=== PATIENT | female | born 1965 | race Caucasian/White ===

== ENCOUNTER → 2018-05-05 13:12 | Outpatient (CLI) | payer OTHER, MEDICAID, SELFPAY | PROVIDERS: Visit Provider Physician Assistant | DX: R68.89 Other general symptoms and signs (principal) | CPT/HCPCS: 87400 ==

== ENCOUNTER → 2018-06-29 10:39 | Outpatient (CLI) | payer OTHER, MEDICAID, SELFPAY ==
--- NOTE | 2018-06-29 | DI.MG.S_ITS ---
BILATERAL DIGITAL SCREENING MAMMOGRAM 3D/2D WITH CAD: 06/29/2018 CLINICAL: Routine screening. Baseline exam. No prior exams were available for comparison. There are scattered fibroglandular elements in both breasts. Current study was also evaluated with a Computer Aided Detection (CAD) system. No significant masses, calcifications, or other findings are seen in either breast. IMPRESSION: NEGATIVE There is no mammographic evidence of malignancy. A 1 year screening mammogram is recommended. This exam was interpreted at Station ID: [id number]. NOTE: For mammograms, a report in lay terms will be sent to the patient. Approximately 15% of breast malignancies will not be visualized mammographically. In the management of a palpable breast mass, a negative mammogram must not discourage biopsy of a clinically suspicious lesion. Electronically Signed By: Norma obregon/moshe:06/29/2018 11:27:28 letter sent: Normal Exam ACR BI-RADS Category 1: Negative [id number]
== END ==
PROVIDERS: Visit Provider Physician Assistant
DX: Z12.31 Encounter for screening mammogram for malignant neoplasm of breast (principal)
CPT/HCPCS: 77063; 77067

== ENCOUNTER → 2018-07-07 10:55 | Outpatient (CLI) | payer OTHER, MEDICAID, SELFPAY ==
[2018-07-07 11:42] LABS: Add Manual Diff / Slide Review NO; Basophils Absolute Auto 0 /uL (0-100); Basophils Percent Auto 1.1 % (0-2); Eosinophils Absolute Auto 100 /uL (0-450); Eosinophils Percent Auto 1.3 % (2-4); Hematocrit 38.7 % (36-46); Lymphocytes Absolute Auto 1300 /uL (1100-4500); Lymphocytes Percent Auto 28.5 % (25-40); Mean Corpuscular HGB Conc 33.6 % (30-36); Mean Corpuscular Hemoglobin 29.6 PG (26-34); Monocytes Absolute Auto 300 /uL (0-900); Monocytes Percent Auto 7.2 % (3-14); Neutrophils Absolute Auto 2800 /uL (1500-7000); Neutrophils Percent Auto 61.9 % (50-75); Platelet Count 279 X10^3/uL (150-400); Red Cell Distribution Width 13.7 % (11.6-14.8); White Blood Cell Count 4.5 X10^3/uL (4.5-11.0)
[2018-07-07 12:08] LABS: Alanine Aminotransferase 32 IU/L (9-52); Albumin 4.5 g/dL (3.5-5.0); Albumin Globulin Ratio 1.7 (1.0-2.8); Alkaline Phosphatase 54 U/L (38-126); Aspartate Aminotransferase 23 IU/L (14-36); BUN Creatinine Ratio 22.2 (6-22); Bilirubin Total 0.6 mg/dL (0.2-1.3); Blood Urea Nitrogen 20 mg/dL (7-17); Calcium 9.3 mg/dL (8.4-10.2); Carbon Dioxide 27 mmol/L (22-32); Chloride 102 mmol/L (98-107); Cholesterol 243 mg/dL (140-199); Estimated Glomerular Filt Rate > 60.0 mL/min (>60); Globulin 2.7 g/dL (1.7-4.1); Glucose 88 mg/dL (70-100); HDL Cholesterol 65 mg/dL (40-60); HEMOLYSIS < 15 (0-50); LDL Cholesterol Calculated 153 mg/dL (<100); Potassium 4.2 mmol/L (3.4-5.1); Sodium 138 mmol/L (137-145); Total Protein 7.2 g/dL (6.3-8.2); Triglycerides 123 mg/dL (35-150)
[2018-07-07 12:47] LABS: Thyroid Stimulating Hormone 1.83 uIU/mL (0.47-4.68)
== END ==
PROVIDERS: Visit Provider Physician Assistant
DX: R00.2 Palpitations (principal); R03.0 Elevated blood-pressure reading, without diagnosis of hypertension; R53.83 Other fatigue; R63.5 Abnormal weight gain
CPT/HCPCS: 36415; 80053; 80061; 84443; 85025

== ENCOUNTER → 2018-08-22 11:51 | Outpatient (CLI) | payer OTHER, MEDICAID, SELFPAY ==
--- NOTE | 2018-08-22 11:52 | DI.US.S_ITS ---
PROCEDURE: US PELVIC COMPLETE INDICATIONS: PELVIC PAIN TECHNIQUE: Real-time scanning was performed of the pelvic organs, with image documentation. Additional endovaginal scanning was necessary due to incomplete visualization of the adnexal and endometrial structures by transabdominal scanning. COMPARISON: None. FINDINGS: Transabdominal scanning: Limited scanning through the kidneys shows no hydronephrosis. No pathologic free abdominal or pelvic fluid. Endovaginal scanning: Uterus: Uterus is normal in size at 2.3 x 2.8 x 5.1 cm, retroverted. The endometrium measures 1.6 mm in combined thickness. Ovaries: Right ovary measures 1.8 x 0.7 x 0.8 cm with normal echotexture. The left ovary could not be seen due to bowel gas. IMPRESSION: Retroverted normal appearing uterus, no sign of endometrial mass or abnormal fluid collection. No fibroids found. Normal-appearing right ovary, nonvisualization of the left ovary due to bowel gas. Dictated by: Bhavin Owusu M.D. on 08/22/2018 at 14:35 Approved by: Bhavin Owusu M.D. on 08/22/2018 at 14:36
== END ==
PROVIDERS: PCP Physician Assistant; Visit Provider Obstetrics & Gynecology
DX: R10.2 Pelvic and perineal pain (principal); N85.4 Malposition of uterus
CPT/HCPCS: 76830; 76856

== ENCOUNTER 2018-12-06 08:30 | Day surgery (SDC) | payer OTHER, MEDICAID, SELFPAY ==
--- NOTE | 2018-12-06 | PATH_ITS ---
[facility] Accession Number: [id number] . 01 Material submitted: . PART A: colon - POLYP AT 15 CM COLON PART B: colon - ANAL VERGE POLYP . 01 Clinical history: . ENCOUNTER FOR SCREENING FOR MALIGNANT NEOPLASM . 02 Diagnosis: A. Colon, Polyp at 15 cm, Biopsy: Tubular adenoma. . B. Anal Verge, Polyp, Biopsy: Hyperplastic polyp. V 12/08/2018 1337 Local . 02 Electronically signed: . Clarice Torres MD, Pathologist NPI- [id number] . 01 Gross description: . Part A: POLYP AT 15 CM COLON: Received in formalin is 1 fragment(s) of ivory, soft tissue measuring 0.6 x 0.6 x 0.6 cm which is bisected and submitted entirely in 1 cassette(s) Part B: ANAL VERGE POLYP: Received in formalin is 1 fragment(s) of ivory, soft tissue measuring 0.3 x 0.2 x 0.2 cm which is entirely submitted and submitted entirely in 1 cassette(s) /[facility] [place] 12/06/2018 1919 Local . 02 Pathologist provided ICD-10: D12.6 . 02 CPT . 228982, [id number] Performed at: 01 [facility] [address] [facility], [place], [place] [id number] MD Oniel Bond MD Phone: [phone] Performed at: 02 [facility] [place] [address] [place], [place] [id number] MD Clarice Torres MD Phone: [phone]
[2018-12-06 09:12] VITALS: BMI 31.3
[2018-12-06] MEDS: SODIUM CHLORIDE 0.9% 1,000 ML 200 ML IV (09:27)
[2018-12-06 09:28] VITALS: BP 121/84; PULSE 73; RESP 16; TEMP 36.6; O2SAT 97
[2018-12-06] MEDS: ONDANSETRON 4 MG/2 ML INJ IV (09:41)
--- NOTE | 2018-12-06 09:43 | PM.HP.1 ---
History of Present Illness History of Present Illness Date Patient Seen: 12/06/18 Time Patient Seen: 09:39 Chief complaint: [id number] Narrative: The patient is a woman here for screening colonoscopy due to age. She is 53. This is her 1st exam. Patient History Medical History Abnormal Pap smear of cervix (Resolved ~1985) Asthma (Chronic ~1981) Chicken pox (Resolved ~1971) Chronic cough (Chronic ~2007) Heavy menstrual period (Chronic ~2013) History of cold sores (Chronic ~1969) History of recurrent ear infection (Resolved ~1983) Irregular menstrual cycle (Chronic ~2014) Migraines (Chronic ~1999) Painful menstrual periods (Chronic ~2014) Recurrent sinusitis (Chronic ~1984) Seasonal allergies (Chronic ~1981) Surgical History Anesthesia (Resolved) History of tonsillectomy and adenoidectomy (Resolved ~1994) Family History (Updated 07/13/18 @ 19:37 by Sita Haro) Father Heart disease Pacemaker Stroke Mother Heart disease Hypertension Hyperlipidemia Brother Hyperlipidemia Hypertension Sister Crohn's disease Grandfather Heart disease Grandmother Stroke Social History household members: spouse Smoking Status: Never smoker second hand exposure: Yes (I was for many years, but not anymore.) alcohol intake: current (beer, cider or wine daily.) substance use type: does not use Family & Social History Family History Father Heart disease Pacemaker Stroke Mother Heart disease Hypertension Hyperlipidemia Brother Hyperlipidemia Hypertension Sister Crohn's disease Grandfather Heart disease Grandmother Stroke Social History: household members spouse Tobacco & Substance use: Smoking Status Never smoker alcohol intake current Meds Home Medications and Allergies Home Medications Medication Instructions Recorded Confirmed Type Ventolin Inhaler See Rx Instructions .ROUTE .COMPLEX 07/05/18 12/06/18 History acetaminophen 325 mg tablet 500 mg PO ONCE PRN tab 07/05/18 12/06/18 History fluticasone propionate 50 See Rx Instructions NASAL DAILY 07/05/18 12/06/18 History mcg/actuation nasal spray,suspension ibuprofen 200 mg tablet 400 mg PO ONCE PRN tab 07/05/18 12/06/18 History rizatriptan 10 mg disintegrating 10 mg PO ONCE PRN 07/05/18 12/06/18 History tablet Jennifer 1 tab PO DAILY PRN 07/14/18 12/06/18 History Promethazine 1 tab PO ONCE PRN 07/14/18 12/06/18 History Sudafed PE OTC See Rx Instructions .ROUTE 07/14/18 12/06/18 History .COMPLEX PRN Zovirax See Rx Instructions .ROUTE .COMPLEX 07/14/18 12/06/18 History estradiol 0.01% (0.1 mg/gram) 0.3 gram VAG DAILY #42.5 gram 08/11/18 12/06/18 Rx vaginal cream valsartan 80 mg tablet 80 mg PO DAILY #30 tab 10/24/18 12/06/18 Rx Allergies Allergy/AdvReac Type Severity Reaction Status Date / Time Sulfa (Sulfonamide Allergy Severe anaphylaxis Verified 10/24/18 07:56 Antibiotics) codeine Allergy Intermediate Nausea Verified 10/24/18 07:56 Review of Systems Review of Systems ROS Unobtainable: All systems reviewed & are unremarkable except as noted in HPI and below Respiratory Comments: Has asthma and respiratory issues at times. Exam Vital Signs (past 8 hours): - 12/06/18 09:28 Temperature 97.9 F Pulse Rate 73 Respiratory Rate 16 Blood Pressure 121/84 Pulse Oximetry 97 Oxygen Delivery Method Room Air Narrative Exam Narrative: Pleasant cooperative patient no apparent distress. Lungs are clear to auscultation. No rales or rhonchi. Heart regular rate and rhythm no murmur gallop. Abdomen is soft nontender without mass. No obvious hernias. Patient is alert and oriented x3. Assessment & Plan Assessment & Plan narrative: The patient for a screening colonoscopy. I have discussed the procedure with them. Risks of bleeding, perforation which would necessitate major operation, failure to find remove all lesions, the potential tattoo were all discussed. All questions were answered. They wished to proceed.
--- NOTE | 2018-12-06 09:45 | PM.PREOP ---
Pre-operative Note Interval Note History & Physical reviewed/Exam performed by Physician: Yes Changes to H&P: No ASA Class (for procedural sedation): II
[2018-12-06] MEDS: fentaNYL 250 MCG/5 ML INJ IV (10:15)
[2018-12-06] MEDS: MIDAZOLAM 5 MG/5 ML VIAL IV (10:16)
--- NOTE | 2018-12-06 10:28 | PM.OP.ENDO ---
Operative Date/Time/Diagnoses Date of procedure: 12/06/18 Time of procedure: 10:28 Pre-op diagnosis: Screening examination. This is her 1st colonoscopy. She is 53. Post-op diagnosis: same (Polyp at 15 cm snared and removed. Small polyp near the anal verge removed with biopsy forceps. Diverticulosis occasional.) Procedure & Clinicians Study performed: Colonoscopy with hot snare polypectomy at cold biopsy. Same procedure as scheduled: Yes Indications: Screening Surgeon: Carlo Palacios Procedure Notes SCOAP/Timeout: Perform Procedure in detail: The patient was placed in the left lateral decubitus position and underwent IV sedation directed by the surgeon consisting of fentanyl and Versed. Digital exam was unremarkable. The scope was inserted and advanced through the rectum into the sigmoid, descending, transverse, and ascending colon. Rare diverticuli were seen scattered in the colon. The cecum was reached identified by the ileocecal valve and the appendiceal opening. The scope was gradually brought out. Polyps were found at 15 cm from the anal verge and at the anal verge. These were snared and removed with cold biopsy respectively.. The scope ultimately was retroflexed in the rectum. The appearance was normal. The scope was removed and the patient tolerated the procedure well Scope withdrawal time: 7 minutes (10.5 MINUTES TOTAL) Sedation minutes: 35 Findings: diverticulosis and polyp (At 15 cm and near the anal verge) Specimen(s): other (Polyps) Complications: none Post-procedure Recommendations: Colonscopy in 5 years Follow up: as needed Disposition: PACU
[2018-12-06 10:37] VITALS: BP 106/73; PULSE 77; RESP 16; TEMP 36.7; O2SAT 99
--- NOTE | 2018-12-06 10:58 | SUR.PHASEI ---
pt awake on arrival, no nausea tolerated juice, to OPD stable.
[2018-12-06 11:06] VITALS: BP 97/69; PULSE 70; RESP 14; TEMP 36.2; O2SAT 98
[2018-12-06 11:12] VITALS: BP 109/77; PULSE 61; O2SAT 98
== END 2018-12-06 11:20 | disposition home or self-care (01) ==
PROVIDERS: PCP Physician Assistant; Visit Provider Specialist
PROC: 0DJD8ZZ Inspection of Lower Intestinal Tract, Via Natural or Artificial Opening Endoscopic (ICD-10-PCS; CPT 45378; principal; 2018-12-06 09:45)
DX: Z12.11 Encounter for screening for malignant neoplasm of colon (principal); K57.30 Diverticulosis of large intestine without perforation or abscess without bleeding; D12.6 Benign neoplasm of colon, unspecified
CPT/HCPCS: 45385; 45380; 99152; 99153; J2250; J2405; J3010

== ENCOUNTER → 2018-12-15 12:13 | Outpatient (CLI) | payer OTHER, MEDICAID, SELFPAY ==
[2018-12-15 12:41] LABS: Add Manual Diff / Slide Review NO; Basophils Absolute Auto 0 /uL (0-100); Basophils Percent Auto 0.6 % (0-2); Eosinophils Absolute Auto 100 /uL (0-450); Eosinophils Percent Auto 1.2 % (2-4); Hematocrit 38.2 % (36-46); Hemoglobin 13.1 g/dL (12.0-16.0); Lymphocytes Absolute Auto 1300 /uL (1100-4500); Lymphocytes Percent Auto 26.1 % (25-40); Mean Corpuscular HGB Conc 34.3 % (30-36); Mean Corpuscular Hemoglobin 30.1 PG (26-34); Mean Corpuscular Volume 87.8 fL (80-100); Monocytes Absolute Auto 300 /uL (0-900); Monocytes Percent Auto 6.7 % (3-14); Neutrophils Absolute Auto 3200 /uL (1500-7000); Neutrophils Percent Auto 65.4 % (50-75); Platelet Count 288 X10^3/uL (150-400); Red Blood Cell Count 4.35 X10^6/uL (4.0-5.2); Red Cell Distribution Width 13.7 % (11.6-14.8); White Blood Cell Count 4.9 X10^3/uL (4.5-11.0)
[2018-12-15 12:51] LABS: Alanine Aminotransferase 41 IU/L (9-52); Albumin 4.4 g/dL (3.5-5.0); Albumin Globulin Ratio 1.5 (1.0-2.8); Alkaline Phosphatase 55 U/L (38-126); Aspartate Aminotransferase 28 IU/L (14-36); BUN Creatinine Ratio 15.7 (6-22); Bilirubin Total 0.6 mg/dL (0.2-1.3); Blood Urea Nitrogen 11 mg/dL (7-17); Calcium 9.3 mg/dL (8.4-10.2); Carbon Dioxide 29 mmol/L (22-32); Chloride 104 mmol/L (98-107); Estimated Glomerular Filt Rate > 60.0 mL/min (>60); Globulin 2.9 g/dL (1.7-4.1); Glucose 96 mg/dL (70-100); HEMOLYSIS < 15 (0-50); Potassium 4.8 mmol/L (3.4-5.1); Sodium 139 mmol/L (137-145); Total Protein 7.3 g/dL (6.3-8.2)
== END ==
PROVIDERS: Family Provider Physician Assistant; PCP Physician Assistant; Visit Provider Specialist
DX: K62.89 Other specified diseases of anus and rectum (principal); M54.9 Dorsalgia, unspecified; R10.9 Unspecified abdominal pain
CPT/HCPCS: 36415; 80053; 85025

== ENCOUNTER → 2018-12-15 15:00 | Outpatient (CLI) | payer OTHER, MEDICAID, SELFPAY ==
--- NOTE | 2018-12-15 15:07 | DI.CT.S_ITS ---
PROCEDURE: CT ABDOMEN PELVIS WO/W CON INDICATIONS: Abdominal back and pelvic pain week after colonoscopy TECHNIQUE: After the administration of oral contrast, 5 mm thick sections acquired from the diaphragms to the iliac crests. After the administration of intravenous contrast, 5 mm thick sections acquired from the diaphragms to the symphysis. 5 mm thick coronal and sagittal reformats were acquired. For radiation dose reduction, the following was used: automated exposure control, adjustment of mA and/or kV according to patient size. COMPARISON: None. FINDINGS: Image quality: Excellent. ABDOMEN: Lung bases: Lung bases are clear. Heart size is normal. Solid organs: Liver is normal in size and enhancement. Gallbladder is unremarkable. Biliary system is non-dilated. Pancreas enhances normally. Spleen is normal in size and enhancement. No adrenal nodules. Both kidneys are normal in size. No hydronephrosis or nephrolithiasis. Bowel and peritoneum: Stomach, small and large bowel loops are normal in caliber and wall thickness. Moderate sigmoid colon diverticulosis. No abscess or fluid collection. No obstruction. No free fluid or air. Nodes and vessels: No retroperitoneal or mesenteric adenopathy by size criteria. Aorta and inferior vena are normal in caliber. Miscellaneous: Tiny fat-containing periumbilical hernia. PELVIS: Genitourinary: Bladder wall thickness is normal. Miscellaneous: No inguinal hernias or adenopathy. Bones: No suspicious bony lesions. No vertebral body compression fractures. IMPRESSION: 1. No findings to suggest bowel perforation. No free fluid or acute inflammatory change. 2. Moderate sigmoid colon diverticulosis. Dictated by: Javier Smith M.D. on 12/15/2018 at 16:10 Approved by: Javier Smith M.D. on 12/15/2018 at 16:14
== END ==
PROVIDERS: PCP Physician Assistant; Visit Provider Specialist
DX: R10.2 Pelvic and perineal pain (principal); R10.9 Unspecified abdominal pain; K57.30 Diverticulosis of large intestine without perforation or abscess without bleeding; M54.5 Low back pain; K62.89 Other specified diseases of anus and rectum
CPT/HCPCS: 36415; 74178; 80053; 85025; Q9967

== ENCOUNTER → 2018-12-26 11:02 | Outpatient (CLI) | payer OTHER, MEDICAID, SELFPAY ==
[2018-12-26 13:54] LABS: Cholesterol 243 mg/dL (140-199); HDL Cholesterol 80 mg/dL (40-60); LDL Cholesterol Calculated 132 mg/dL (<100); Triglycerides 154 mg/dL (35-150)
[2018-12-26 14:17] LABS: Thyroid Stimulating Hormone 2.76 uIU/mL (0.47-4.68)
== END ==
PROVIDERS: PCP Physician Assistant; Visit Provider Physician Assistant
DX: E78.5 Hyperlipidemia, unspecified (principal); I10 Essential (primary) hypertension; R00.2 Palpitations
CPT/HCPCS: 36415; 80061; 83735; 84443

== ENCOUNTER → 2019-01-03 12:33 | Outpatient (CLI) | payer OTHER, MEDICAID, SELFPAY ==
--- NOTE | 2019-01-03 12:39 | DI.RAD.S_ITS ---
PROCEDURE: XR ANKLE LT MIN 3V INDICATIONS: Pain just below lateral malleolus TECHNIQUE: 3 views of the ankle were acquired. COMPARISON: None. FINDINGS: Bones: No fractures or dislocations. Ankle mortise is normally aligned. No suspicious bony lesions. Plantar calcaneal spur Soft tissues: No tibiotalar joint effusion. Achilles tendon appears normal. Soft tissue swelling IMPRESSION: Soft tissue swelling. No fracture. If the patient's symptoms do not improve recommend followup radiographs in 10 days to assess for healing sclerosis/occult injury. Plantar calcaneal spur. Dictated by: Otto Gill M.D. on 01/03/2019 at 16:26 Approved by: Otto Gill M.D. on 01/03/2019 at 16:28
--- NOTE | 2019-01-03 12:39 | DI.RAD.S_ITS ---
PROCEDURE: XR FOOT LT MIN 3V INDICATIONS: Pain across top of foot and also area of 3rd toe TECHNIQUE: 3 views of the foot were acquired. COMPARISON: None. FINDINGS: Bones: No fractures or dislocations. No suspicious bony lesions. Plantar calcaneal spur. Incidental accessory navicular Soft tissues: No tibiotalar joint effusion. Achilles tendon appears normal. IMPRESSION: Plantar calcaneal spur Dictated by: Otto Gill M.D. on 01/03/2019 at 16:28 Approved by: Otto Gill M.D. on 01/03/2019 at 16:30
== END ==
PROVIDERS: PCP Physician Assistant; Visit Provider Physician Assistant
DX: M79.672 Pain in left foot (principal); M25.572 Pain in left ankle and joints of left foot; M79.89 Other specified soft tissue disorders; M77.32 Calcaneal spur, left foot
CPT/HCPCS: 73610; 73630

== ENCOUNTER 2020-01-31 13:00 | Emergency (ER) | payer OTHER, SELFPAY ==
[2020-01-31] VITALS (7 sets, daily range): BP systolic 131–162; BP diastolic 82–92; PULSE 65–82; RESP 15–31; TEMP 37.1; O2SAT 90–99; BMI 32.7
--- NOTE | 2020-01-31 13:20 | ED_ITS ---
HPI - SOB/Dyspnea General Chief Complaint: Fever Stated Complaint: positive for Covid symptoms are still here 10days Time Seen by Provider: 01/31/20 13:14 Source: patient Mode of arrival: Ambulatory Limitations: no limitations History of Present Illness HPI Narrative: The patient is a 54-year-old female who has known COVID presenting with increasing shortness of breath. She said her developed COVID and she was tested on the because she was having symptoms of shortness of breath, ageusia, anosmia, along with fever body aches and chills. She said most her symptoms have improved however she has noticed some increasing shortness of breath. She feels like she is having an asthma attack ongoing and unable to take a deep breath. She used her albuterol inhaler numerous times without any relief. She says she is still short of breath but able to give me full history without any issue. She is also complaining of some chest heaviness today as well. Nonradiating. MD Complaint: shortness of breath and cough Onset (ago): day(s) () Context: recent illness ( COVID) Known history of: asthma Associated symptoms: chest pain Related Data Home Medications Medication Instructions Recorded Confirmed Ventolin Inhaler See Rx Instructions .ROUTE .COMPLEX 07/05/18 02/21/19 acetaminophen 325 mg tablet 500 mg PO ONCE PRN tab 07/05/18 02/21/19 fluticasone propionate 50 See Rx Instructions NASAL DAILY 07/05/18 02/21/19 mcg/actuation nasal spray,suspension ibuprofen 200 mg tablet 400 mg PO ONCE PRN tab 07/05/18 02/21/19 rizatriptan 10 mg disintegrating 10 mg PO ONCE PRN 07/05/18 02/21/19 tablet Jennifer 1 tab PO DAILY PRN 07/14/18 02/21/19 Promethazine 1 tab PO ONCE PRN 07/14/18 02/21/19 Sudafed PE OTC See Rx Instructions .ROUTE 07/14/18 02/21/19 .COMPLEX PRN Zovirax See Rx Instructions .ROUTE .COMPLEX 07/14/18 02/21/19 Multidophilus PO 02/21/19 Previous Rx's Medication Instructions Recorded estradiol 0.3 gram VAG DAILY #42.5 gram 08/11/18 estradiol 10 mcg vaginal tablet 10 mcg VAG 2XW #24 tab 09/08/19 valsartan 80 mg tablet 80 mg PO DAILY #90 tab 01/15/20 Allergies Allergy/AdvReac Type Severity Reaction Status Date / Time Sulfa (Sulfonamide Allergy Severe anaphylaxis Verified 01/31/20 13:34 Antibiotics) codeine Allergy Intermediate Nausea Verified 01/31/20 13:34 benazepril AdvReac Intermediate Nausea; Verified 01/31/20 13:34 Dizziness; Fatigue Review of Systems Review of Systems ROS Unobtainable: All systems reviewed & are unremarkable except as noted in HPI and below Constitutional Constitutional: Denies chills, Denies fever(s), Denies lethargy and Denies weakness Eyes Eyes: Denies change in vision, Denies eye discharge, Denies irritation and Denies loss of vision ENT Ears, Nose, Mouth, and Throat: Denies change in voice, Denies neck pain and Denies sore throat Cardiovascular Cardiovascular: Denies chest pain, Denies irregular heart rhythm, Denies lightheadedness, Denies palpitations, Reports dyspnea and Denies orthopnea Respiratory Respiratory: Reports as per HPI, Reports cough and Reports dyspnea Gastrointestinal Gastrointestinal: Denies abdominal pain, Denies change in bowel habits, Denies diarrhea, Denies nausea and Denies vomiting Musculoskeletal Musculoskeletal: Denies back pain and Denies neck pain Integumentary/Breasts Skin/Breast: Denies pruritus, Denies erythema, Denies rash and Denies wounds Neurologic Neurologic: Denies loss of vision and Denies weakness Endocrine Endocrine: Denies palpitations Patient History Medical History (Updated 01/31/20 @ 15:03 by Rabia Esposito DO) Abnormal Pap smear of cervix (~1985) Asthma (~1981) Chicken pox (~1971) Chronic cough (~2007) Heavy menstrual period (~2013) History of cold sores (~1969) History of recurrent ear infection (~1983) Irregular menstrual cycle (~2014) Migraines (~1999) Painful menstrual periods (~2014) Recurrent sinusitis (~1984) Seasonal allergies (~1981) Surgical History Anesthesia History of tonsillectomy and adenoidectomy (~1994) Family History Father Heart disease Pacemaker Stroke Mother Heart disease Hypertension Hyperlipidemia Brother Hyperlipidemia Hypertension Sister Crohn's disease Grandfather Heart disease Grandmother Stroke Social History household members: spouse Smoking Status: Never smoker second hand exposure: Yes (I was for many years, but not anymore.) alcohol intake: current (beer, cider or wine daily.) substance use type: does not use Smoking Status: Never smoker Exam Initial Vital Signs Initial Vital Signs: Vital Signs Pulse Oximetry 90 L 01/31/20 13:13 GENERAL: Well-appearing, well-nourished and in no acute distress. HEENT: Head atraumatic,EOMI, pupils reactive, face symmetric, moist mucous membranes CARDIOVASCULAR: Regular rate and rhythm without murmurs, rubs or gallops. RESPIRATORY: Breath sounds equal bilaterally, no wheezes rales or rhonchi. Speaking in full sentences no issue or respiratory distress ABDOMEN: Soft, nontender. Normoactive bowel sounds all 4 quadrants. No guarding or rebound. EXTREMITIES: Normal range of motion, no clubbing or edema. Neurovascularly intact NEUROLOGICAL: Alert and oriented x4. SKIN: Warm, dry, no laceration, no petechiae, no rashes or lesions. Course Orders Ordered: ED Orders 01/31/20 13:25 C-Reactive Protein Quant Stat Complete Blood Count AUTO DIFF Stat Comprehensive Metabolic Panel Stat Ferritin Stat Lactate (Lactic Acid) Stat Lactate Dehydrogenase Stat NT-proBNP (BNP-Adult 18+) Stat Procalcitonin Stat Troponin & CK Cardiac Panel Stat 01/31/20 13:40 EKG-12 Lead Stat 01/31/20 13:41 XR chest 1V Stat Vital Signs Vital signs: Vital Signs - 8 hr 01/31/20 13:13 01/31/20 13:14 01/31/20 13:30 Temperature Pulse Rate 82 79 Respiratory Rate 31 H Blood Pressure 162/92 H 159/90 H Pulse Oximetry 90 L 97 99 01/31/20 13:34 01/31/20 14:00 01/31/20 14:30 Temperature 98.8 F Pulse Rate 76 68 65 Respiratory Rate 18 15 17 Blood Pressure 162/92 H 131/82 138/84 Pulse Oximetry 97 98 97 01/31/20 15:00 Temperature Pulse Rate 72 Respiratory Rate 21 Blood Pressure 134/82 Pulse Oximetry 98 MDM - SOB/Dyspnea Lab Data Attestation: I reviewed the patient's lab results. Result diagrams: 01/31/20 13:25 01/31/20 13:25 Labs: Lab Results 01/31/20 01/31/20 01/31/20 Range/Units 13:25 13:25 13:25 WBC 4.7 (4.5-11.0) X10^3/uL RBC 4.58 (4.0-5.2) X10^6/uL Hgb 13.3 (12.0-16.0) g/dL Hct 40.2 (36-46) % MCV 87.7 (80-100) fL MCH 29.1 (26-34) PG MCHC 33.2 (30-36) % RDW 12.7 (11.6-14.8) % Plt Count 288 (150-400) X10^3/uL Neut % (Auto) 61.2 (50-75) % Lymph % (Auto) 28.0 (25-40) % [place] % (Auto) 9.4 (3-14) % Eos % (Auto) 0.9 L (2-4) % Baso % (Auto) 0.5 (0-2) % Neut # (Auto) 2900 (3795-9622) /uL Lymph # (Auto) 1300 (4738-3842) /uL [place] # (Auto) 400 (0-900) /uL Eos # (Auto) 0 (0-450) /uL Baso # (Auto) 0 (0-100) /uL Sodium 139 (137-145) mmol/L Potassium 4.3 (3.4-5.1) mmol/L Chloride 107 (98-107) mmol/L Carbon Dioxide 29 (22-32) mmol/L BUN 13 (7-17) mg/dL Creatinine 0.76 (0.52-1.04) mg/dL Estimated GFR > 60.0 (>60) mL/min BUN/Creatinine Ratio 17.1 (6-22) Glucose 105 H (70-100) mg/dL Lactate (0.7-2.1) mmol/L Calcium 9.7 (8.4-10.2) mg/dL Ferritin (11-264) ng/mL Total Bilirubin 0.6 (0.2-1.3) mg/dL AST 32 (14-36) IU/L ALT 36 H (<35) IU/L Alkaline Phosphatase 57 (38-126) U/L Lactate Dehydrogenase (313-618) U/L Total Creatine Kinase 38 (30-135) U/L CK-MB (CK-2) TNP CK-MB (CK-2) Rel Index TNP Troponin I < 0.012 (0.01-0.034) ng/mL C-Reactive Protein (<1.0) mg/dL NT-Pro-B Natriuret Pep (<125) pg/mL Total Protein 7.5 (6.3-8.2) g/dL Albumin 4.4 (3.5-5.0) g/dL Globulin 3.1 (1.7-4.1) g/dL Albumin/Globulin Ratio 1.4 (1.0-2.8) Procalcitonin < 0.05 (<0.5) ng/mL 01/31/20 01/31/20 Range/Units 13:25 13:25 WBC (4.5-11.0) X10^3/uL RBC (4.0-5.2) X10^6/uL Hgb (12.0-16.0) g/dL Hct (36-46) % MCV (80-100) fL MCH (26-34) PG MCHC (30-36) % RDW (11.6-14.8) % Plt Count (150-400) X10^3/uL Neut % (Auto) (50-75) % Lymph % (Auto) (25-40) % [place] % (Auto) (3-14) % Eos % (Auto) (2-4) % Baso % (Auto) (0-2) % Neut # (Auto) (6134-6660) /uL Lymph # (Auto) (2608-3948) /uL [place] # (Auto) (0-900) /uL Eos # (Auto) (0-450) /uL Baso # (Auto) (0-100) /uL Sodium (137-145) mmol/L Potassium (3.4-5.1) mmol/L Chloride (98-107) mmol/L Carbon Dioxide (22-32) mmol/L BUN (7-17) mg/dL Creatinine (0.52-1.04) mg/dL Estimated GFR (>60) mL/min BUN/Creatinine Ratio (6-22) Glucose (70-100) mg/dL Lactate 0.8 (0.7-2.1) mmol/L Calcium (8.4-10.2) mg/dL Ferritin 61 (11-264) ng/mL Total Bilirubin (0.2-1.3) mg/dL AST (14-36) IU/L ALT (<35) IU/L Alkaline Phosphatase (38-126) U/L Lactate Dehydrogenase 496 (313-618) U/L Total Creatine Kinase (30-135) U/L CK-MB (CK-2) CK-MB (CK-2) Rel Index Troponin I (0.01-0.034) ng/mL C-Reactive Protein < 0.5 (<1.0) mg/dL NT-Pro-B Natriuret Pep 52 (<125) pg/mL Total Protein (6.3-8.2) g/dL Albumin (3.5-5.0) g/dL Globulin (1.7-4.1) g/dL Albumin/Globulin Ratio (1.0-2.8) Procalcitonin (<0.5) ng/mL Imaging Data Chest x-ray: Radiologist's Impression: PROCEDURE: XR CHEST 1V INDICATIONS: flu-like symptoms TECHNIQUE: One view of the chest was acquired. COMPARISON: [facility], CT, CT ABDOMEN PELVIS WO/W CON, 12/15/2018, 15:49. FINDINGS: Surgical changes and devices: None. Lungs and pleura: Lungs appear clear. Low lung volumes. No pleural effusions or pneumothorax. Mediastinum: Mediastinal contours appear normal. Heart size is at the upper limits of normal. Bones and chest wall: No suspicious bony lesions. Overlying soft tissues appear unremarkable. IMPRESSION: No acute cardiopulmonary abnormality identified. Dictated by: Javier Smith M.D. on 01/31/2020 at 14:21 ECG Data Attestation: I personally reviewed and interpreted this ECG as follows: Prior ECG tracings: not available for review Interpretation: Rhythm rate 68 p.r. interval 174 QRS, QRS [address] changes, T-wave inversion noted in lead 3 no priors to compare MDM Narrative Medical decision making narrative: Patient has a known diagnosis of COVID. Inflammatory markers are negative she does have history of asthma. She is not h ypoxic or in any respiratory distress. I think that these may be residual ongoing symptoms however at this time does not need hospitalization. No indication for dexamethasone. At this time I recommend outpatient follow-up Discharge Plan Departure Patient Disposition: Home Clinical Impression: COVID-19 Instructions: DI for COVID-19 (Suspected or Confirmed ) Activity Restrictions/Additional Instructions: *You have been diagnosed with COVID-19 *What to do: You still having some residual symptoms from COVID. Place continue to quarantine you will need to be cleared by her primary care provider before you may return back to work *Continue to take medications as directed Tylenol 650 mg every 4-6 hours if needed for *Follow up with your primary care provider in 2-3 days *Return to ER if you should have wheezing shortness of breath chest or any new, worsening or concerning symptoms CDC Guidelines for home isolation: - Stay away from others - Limit contact with pets and animals: If you must care for a pet, wash your hands before and after interacting with them - Wear a mask if you are sick - Cover your mouth and nose with a tissue when you cough or sneeze. Dispose of tissues in a lined trash can and wash your hands immediately with soap and water for at least 20 seconds. If soap and water are not available, clean hands with alcohol-based hand byproducts maker that contains at least 60% alcohol. - Clean your hands often with soap and water for at least 20 seconds - Avoid touching your eyes, nose and mouth with unwashed hands - Do not share dishes, drinking glasses, cups, eating utensils, towels, or bedding with other people in your home. After using these items, wash them thoroughly with soap and water or put in the geriatric care manager. - Clean high-touch surfaces in your isolation area (?sick room? and bathroom) every day; let a caregiver clean and disinfect high-touch surfaces in other areas of the home. Clean the area or item with soap and water or another detergent if it is dirty. Then, use a household disinfectant. Seek medical attention, but call first: - Seek medical care right away if your illness is worsening (for example, if you have difficulty breathing). - Call your doctor before going in: Before going to the doctor?s office or emergency room, call ahead and tell them your symptoms. They will tell you what to do. - If possible, put on a facemask before you enter the building. If you can?t put on a facemask, try to keep a safe distance from other people (at least 6 feet away). This will help protect the people in the office or waiting room. - Follow care instructions from your healthcare provider and local health department: Your local health authorities will give instructions on checking your symptoms and reporting information. Emergency warning signs for COVID-19: - Difficulty breathing or shortness of breath - Persistent pain or pressure in the chest - New confusion or inability to arouse - Bluish lips or face Prescriptions: No Action estradiol 10 mcg tablet 10 mcg VAG 2XW Qty: 24 RF: 2 valsartan 80 mg tablet 80 mg PO DAILY Qty: 90 RF: 0 Ventolin Inhaler See Rx Instructions .ROUTE .COMPLEX RF: 0 acetaminophen [Tylenol] 325 mg tablet 500 mg PO ONCE PRN (Reason: Pain (Scale Score 1-3)) RF: 0 rizatriptan [Maxalt-CAR SUPERVISOR] 10 mg tablet,disintegrating 10 mg PO ONCE PRN (Reason: Migraine Headache) RF: 0 ibuprofen [Advil] 200 mg tablet 400 mg PO ONCE PRN (Reason: Pain (Scale Score 1-3)) RF: 0 fluticasone propionate [Flonase Allergy Relief] 50 mcg/actuation spray,suspension See Rx Instructions NASAL DAILY RF: 0 Multidophilus PO RF: 0 Jennifer 1 tab PO DAILY PRN (Reason: Allergic Symptoms) RF: 0 Sudafed PE OTC See Rx Instructions .ROUTE .COMPLEX PRN (Reason: Congestion) RF: 0 Zovirax See Rx Instructions .ROUTE .COMPLEX RF: 0 Promethazine 1 tab PO ONCE PRN (Reason: Migraine Headache) RF: 0 estradiol [Estrace] 0.01 % (0.1 mg/gram) cream 0.3 gram VAG DAILY Qty: 42.5 RF: 3 Referrals: Carrol Giles PA-C [Primary Care Provider] -
--- NOTE | 2020-01-31 13:41 | DI.RAD.S_ITS ---
PROCEDURE: XR CHEST 1V INDICATIONS: flu-like symptoms TECHNIQUE: One view of the chest was acquired. COMPARISON: [facility], CT, CT ABDOMEN PELVIS WO/W REGLA, 12/15/2018, 15:49. FINDINGS: Surgical changes and devices: None. Lungs and pleura: Lungs appear clear. Low lung volumes. No pleural effusions or pneumothorax. Mediastinum: Mediastinal contours appear normal. Heart size is at the upper limits of normal. Bones and chest wall: No suspicious bony lesions. Overlying soft tissues appear unremarkable. IMPRESSION: No acute cardiopulmonary abnormality identified. Dictated by: Javier Smith M.D. on 01/31/2020 at 14:21 Approved by: Javier Smith M.D. on 01/31/2020 at 14:22
[2020-01-31 13:46] LABS: Add Manual Diff / Slide Review NO; Basophils Absolute Auto 0 /uL (0-100); Basophils Percent Auto 0.5 % (0-2); Eosinophils Absolute Auto 0 /uL (0-450); Eosinophils Percent Auto 0.9 % (2-4); Hematocrit 40.2 % (36-46); Hemoglobin 13.3 g/dL (12.0-16.0); Lymphocytes Absolute Auto 1300 /uL (1100-4500); Mean Corpuscular HGB Conc 33.2 % (30-36); Mean Corpuscular Hemoglobin 29.1 PG (26-34); Mean Corpuscular Volume 87.7 fL (80-100); Monocytes Absolute Auto 400 /uL (0-900); Monocytes Percent Auto 9.4 % (3-14); Neutrophils Absolute Auto 2900 /uL (1500-7000); Neutrophils Percent Auto 61.2 % (50-75); Platelet Count 288 X10^3/uL (150-400); Red Blood Cell Count 4.58 X10^6/uL (4.0-5.2); Red Cell Distribution Width 12.7 % (11.6-14.8); White Blood Cell Count 4.7 X10^3/uL (4.5-11.0)
[2020-01-31 13:56] LABS: Alanine Aminotransferase 36 IU/L (<35); Albumin 4.4 g/dL (3.5-5.0); Albumin Globulin Ratio 1.4 (1.0-2.8); Alkaline Phosphatase 57 U/L (38-126); Aspartate Aminotransferase 32 IU/L (14-36); BUN Creatinine Ratio 17.1 (6-22); Bilirubin Total 0.6 mg/dL (0.2-1.3); Blood Urea Nitrogen 13 mg/dL (7-17); Calcium 9.7 mg/dL (8.4-10.2); Carbon Dioxide 29 mmol/L (22-32); Chloride 107 mmol/L (98-107); Creatine Kinase 38 U/L (30-135); Estimated Glomerular Filt Rate > 60.0 mL/min (>60); Globulin 3.1 g/dL (1.7-4.1); Glucose 105 mg/dL (70-100); HEMOLYSIS < 15 (0-50); Potassium 4.3 mmol/L (3.4-5.1); Sodium 139 mmol/L (137-145); Total Protein 7.5 g/dL (6.3-8.2)
[2020-01-31 13:58] LABS: Lactate (Lactic Acid) 0.8 mmol/L (0.7-2.1)
[2020-01-31 14:01] LABS: C-Reactive Protein Quant < 0.5 mg/dL (<1.0); Lactate Dehydrogenase 496 U/L (313-618)
[2020-01-31 14:06] LABS: NT-proBNP (BNP-Adult 18+) 52 pg/mL (<125)
[2020-01-31 14:08] LABS: Troponin I < 0.012 ng/mL (0.01-0.034)
[2020-01-31 14:11] LABS: Procalcitonin < 0.05 ng/mL (<0.5)
[2020-01-31 14:32] LABS: Ferritin 61 ng/mL (11-264)
== END 2020-01-31 15:18 | disposition home or self-care (01) ==
PROVIDERS: Emergency Provider Emergency Medicine; PCP Physician Assistant; Referring Provider Nurse Practitioner
DX: U07.1 COVID-19 (principal); R06.02 Shortness of breath; R05 Cough; R07.9 Chest pain, unspecified
CPT/HCPCS: 36415; 71045; 80053; 82550; 82728; 83605; 83615; 83880; 84145; 84484; 85025; 86140; 93005; 99284

== ENCOUNTER → 2020-02-14 15:51 | Outpatient (CLI) | payer OTHER, SELFPAY ==
--- NOTE | 2020-02-14 | DI.MG.S_ITS ---
BILATERAL DIGITAL SCREENING MAMMOGRAM 3D/2D WITH CAD: 02/14/2020 CLINICAL: Routine screening. Comparison is made to exam dated: 06/29/[address] [facility]. There are scattered fibroglandular elements in both breasts. Current study was also evaluated with a Computer Aided Detection (CAD) system. There is an oval equal density asymmetry with an obscured and indistinct margin in the right breast posterior depth inferior region seen on the mediolateral oblique view only. No other significant masses, calcifications, or other findings are seen in either breast. IMPRESSION: INCOMPLETE: NEEDS ADDITIONAL IMAGING EVALUATION The oval equal density asymmetry in the right breast is indeterminate. Mediolateral and spot compression views as well as additional views with possible ultrasound are recommended. This exam was interpreted at Station ID: [id number]. NOTE: For mammograms, a report in lay terms will be sent to the patient. Approximately 15% of breast malignancies will not be visualized mammographically. In the management of a palpable breast mass, a negative mammogram must not discourage biopsy of a clinically suspicious lesion. Electronically Signed By: Oniel guevara/moshe:02/14/2020 16:26:17 letter sent: Additional Imaging Needed ACR BI-RADS Category 0: Incomplete 3340F
== END ==
PROVIDERS: PCP Nurse Practitioner; Referring Provider Nurse Practitioner; Visit Provider Nurse Practitioner
DX: Z12.31 Encounter for screening mammogram for malignant neoplasm of breast (principal)
CPT/HCPCS: 77063; 77067

== ENCOUNTER → 2020-03-11 14:56 | Outpatient (CLI) | payer OTHER, SELFPAY ==
--- NOTE | 2020-03-11 14:57 | DI.MG.S_ITS ---
UNILATERAL RIGHT DIGITAL DIAGNOSTIC MAMMOGRAM 3D/2D WITH ADDITIONAL VIEWS: 03/11/2020 CLINICAL: Additional evaluation requested from prior study. Comparison is made to exams dated: 02/14/2020 mammogram and 06/29/2018 mammogram - [facility]. There are scattered fibroglandular elements in right breast. The previously seen asymmetry in the right breast is no longer visualized, presumably secondary to superimposed fibroglandular breast tissue on the prior exam. No significant masses, calcifications, or other findings are seen in the breast. IMPRESSION: NEGATIVE There is no mammographic evidence of malignancy. A 1 year screening mammogram is recommended. This exam was interpreted at Station ID: [id number]. NOTE: For mammograms, a report in lay terms will be sent to the patient. Approximately 15% of breast malignancies will not be visualized mammographically. In the management of a palpable breast mass, a negative mammogram must not discourage biopsy of a clinically suspicious lesion. Electronically Signed By: Eduardo singh/moshe:03/11/2020 17:44:52 letter sent: Normal Exam ACR BI-RADS Category 1: Negative 3341F
== END ==
PROVIDERS: PCP Nurse Practitioner; Referring Provider Nurse Practitioner; Visit Provider Nurse Practitioner
DX: R92.8 Other abnormal and inconclusive findings on diagnostic imaging of breast (principal); N63.10 Unspecified lump in the right breast, unspecified quadrant
CPT/HCPCS: 77065; G0279

== ENCOUNTER → 2020-03-28 12:16 | Outpatient (CLI) | payer OTHER, SELFPAY ==
--- NOTE | 2020-03-28 12:19 | DI.US.S_ITS ---
PROCEDURE: US THYROID INDICATIONS: LEFT NECK LUMP TECHNIQUE: Real-time scanning was performed of the thyroid gland, with image documentation. COMPARISON: None. FINDINGS: Right: Thyroid lobe measures 3.6 x 1.3 x 1.4 cm. Left: Thyroid lobe measures 3.8 x 1.0 x 1.1 cm. Isthmus: 2.1 mm thick. Lymph nodes: No regional lymphadenopathy. IMPRESSION: Normal appearance of the thyroid and no abnormal masses are seen. Dictated by: Jason Edwards [facility] Interpreted: Bhavin Owusu MD on 03/28/2020 at 14:19 Approved by: Bhavin Owusu M.D. on 03/28/2020 at 16:18
== END ==
PROVIDERS: PCP Nurse Practitioner; Referring Provider Nurse Practitioner; Visit Provider Nurse Practitioner
DX: R22.1 Localized swelling, mass and lump, neck (principal)
CPT/HCPCS: 76536

== ENCOUNTER → 2020-04-01 12:15 | Outpatient (CLI) | payer OTHER, SELFPAY ==
[2020-04-01 12:49] LABS: Add Manual Diff / Slide Review NO; Basophils Absolute Auto 0 /uL (0-100); Basophils Percent Auto 0.8 % (0-2); Eosinophils Absolute Auto 100 /uL (0-450); Eosinophils Percent Auto 1.6 % (2-4); Hematocrit 37.5 % (36-46); Hemoglobin 12.6 g/dL (12.0-16.0); Lymphocytes Absolute Auto 1400 /uL (1100-4500); Lymphocytes Percent Auto 30.9 % (25-40); Mean Corpuscular HGB Conc 33.6 % (30-36); Mean Corpuscular Hemoglobin 29.6 PG (26-34); Mean Corpuscular Volume 88.2 fL (80-100); Monocytes Absolute Auto 400 /uL (0-900); Monocytes Percent Auto 8.7 % (3-14); Neutrophils Absolute Auto 2700 /uL (1500-7000); Platelet Count 246 X10^3/uL (150-400); Red Blood Cell Count 4.25 X10^6/uL (4.0-5.2); Red Cell Distribution Width 13.6 % (11.6-14.8); White Blood Cell Count 4.6 X10^3/uL (4.5-11.0)
[2020-04-01 13:16] LABS: Alanine Aminotransferase 27 IU/L (<35); Albumin 4.2 g/dL (3.5-5.0); Albumin Globulin Ratio 1.6 (1.0-2.8); Alkaline Phosphatase 58 U/L (38-126); Aspartate Aminotransferase 24 IU/L (14-36); BUN Creatinine Ratio 19.2 (6-22); Bilirubin Total 0.5 mg/dL (0.2-1.3); Blood Urea Nitrogen 15 mg/dL (7-17); Calcium 9.1 mg/dL (8.4-10.2); Carbon Dioxide 29 mmol/L (22-32); Chloride 106 mmol/L (98-107); Cholesterol 217 mg/dL (140-199); Estimated Glomerular Filt Rate > 60.0 mL/min (>60); Globulin 2.7 g/dL (1.7-4.1); Glucose 94 mg/dL (70-100); HDL Cholesterol 68 mg/dL (40-60); HEMOLYSIS < 15 (0-50); LDL Cholesterol Calculated 123 mg/dL (<100); Potassium 4.2 mmol/L (3.4-5.1); Sodium 137 mmol/L (137-145); Total Protein 6.9 g/dL (6.3-8.2); Triglycerides 131 mg/dL (35-150)
[2020-04-01 13:58] LABS: Free T3, Triiodothyronine Free 3.72 pg/mL (2.77-5.27); Free T4, Direct Thyroxine 1.07 ng/dL (0.78-2.19)
[2020-04-01 14:11] LABS: Thyroid Stimulating Hormone 2.42 uIU/mL (0.47-4.68)
[2020-04-01 15:17] LABS: Creatinine Urine Random 12.6 mg/dL
[2020-04-01 15:24] LABS: Microalbumin Urine Random < 0.6 mg/dL (0-1.6)
[2020-04-02 16:27] LABS: Fecal Immunochemical Test Negative (Negative)
== END ==
PROVIDERS: PCP Nurse Practitioner; Referring Provider Nurse Practitioner; Visit Provider Nurse Practitioner
DX: Z12.11 Encounter for screening for malignant neoplasm of colon (principal); E78.2 Mixed hyperlipidemia; I10 Essential (primary) hypertension; Z79.899 Other long term (current) drug therapy
CPT/HCPCS: 36415; 80053; 80061; 82043; 82274; 82570; 84439; 84443; 84481; 85025

== ENCOUNTER → 2020-06-04 12:44 | Outpatient (CLI) | payer OTHER, SELFPAY ==
[2020-06-04] MEDS: COVID-19 VACC #1, MRNA(MOD) 100 MCG/0.5 ML VIAL IM (12:52)
== END ==
PROVIDERS: PCP Nurse Practitioner; Visit Provider Internal Medicine
DX: Z23 Encounter for immunization (principal)
CPT/HCPCS: 0011A; 91301

== ENCOUNTER → 2020-07-03 12:51 | Outpatient (CLI) | payer OTHER, SELFPAY ==
[2020-07-03] MEDS: COVID-19 VACC #2, MRNA(MOD) 100 MCG/0.5 ML VIAL IM (13:03)
== END ==
PROVIDERS: PCP Nurse Practitioner; Visit Provider Internal Medicine
DX: Z23 Encounter for immunization (principal)
CPT/HCPCS: 0012A; 91301

== ENCOUNTER → 2020-10-21 12:37 | Outpatient (CLI) | payer OTHER, SELFPAY ==
[2020-10-21 13:22] LABS: COVID19 -Nasal RAPID Negative (Negative)
== END ==
PROVIDERS: PCP Nurse Practitioner; Visit Provider Nurse Practitioner
DX: Z20.822 Contact with and (suspected) exposure to COVID-19 (principal); M79.673 Pain in unspecified foot
CPT/HCPCS: 87635

== ENCOUNTER → 2020-10-21 12:54 | Outpatient (CLI) | payer OTHER, SELFPAY ==
--- NOTE | 2020-10-21 12:56 | DI.RAD.S_ITS ---
PROCEDURE: XR FOOT RT MIN 3V INDICATIONS: R mid foot pain and swelling TECHNIQUE: 3 views of the foot were acquired. COMPARISON: [facility], CR, XR FOOT LT MIN 3V, 01/03/2019, 12:51. FINDINGS: Bones: Healing stress fracture of the mid shaft of the 2nd metatarsal. Abundant callus formation. No other fractures or dislocations. Soft tissues: No tibiotalar joint effusion. Achilles tendon appears normal. IMPRESSION: Healing stress fracture of the mid shaft of the 2nd metatarsal. Dictated by: Ricardo Matos M.D. on 10/21/2020 at 13:12 Approved by: Ricardo Matos M.D. on 10/21/2020 at 13:14
[2020-10-21 13:44] LABS: Add Manual Diff / Slide Review NO; Basophils Absolute Auto 0 /uL (0-100); Basophils Percent Auto 0.7 % (0-2); Eosinophils Absolute Auto 0 /uL (0-450); Eosinophils Percent Auto 0.8 % (2-4); Hematocrit 38.6 % (36-46); Lymphocytes Absolute Auto 1400 /uL (1100-4500); Lymphocytes Percent Auto 27.9 % (25-40); Mean Corpuscular HGB Conc 33.7 % (30-36); Monocytes Absolute Auto 400 /uL (0-900); Monocytes Percent Auto 8.4 % (3-14); Neutrophils Absolute Auto 3200 /uL (1500-7000); Neutrophils Percent Auto 62.2 % (50-75); Platelet Count 312 X10^3/uL (150-400); Red Blood Cell Count 4.34 X10^6/uL (4.0-5.2); Red Cell Distribution Width 13.2 % (11.6-14.8); White Blood Cell Count 5.1 X10^3/uL (4.5-11.0)
[2020-10-21 13:55] LABS: Erythrocyte Sedimentation Rate 10 MM/HR (0-20)
[2020-10-21 14:27] LABS: Alanine Aminotransferase 26 IU/L (<35); Albumin 4.1 g/dL (3.5-5.0); Albumin Globulin Ratio 1.4 (1.0-2.8); Alkaline Phosphatase 61 U/L (38-126); Aspartate Aminotransferase 26 IU/L (14-36); BUN Creatinine Ratio 15.2 (6-22); Bilirubin Total 0.5 mg/dL (0.2-1.3); Blood Urea Nitrogen 12 mg/dL (7-17); C-Reactive Protein Quant 0.6 mg/dL (<1.0); Calcium 9.2 mg/dL (8.4-10.2); Carbon Dioxide 26 mmol/L (22-32); Chloride 107 mmol/L (98-107); Estimated Glomerular Filt Rate > 60.0 mL/min (>60); Glucose 100 mg/dL (70-100); HEMOLYSIS < 15 (0-50); Potassium 4.4 mmol/L (3.4-5.1); Sodium 140 mmol/L (137-145); Total Protein 7.1 g/dL (6.3-8.2); Uric Acid 5.7 mg/dL (2.5-6.2)
== END ==
PROVIDERS: PCP Nurse Practitioner; Referring Provider Nurse Practitioner; Visit Provider Nurse Practitioner
DX: M79.671 Pain in right foot (principal); M84.374D Stress fracture, right foot, subsequent encounter for fracture with routine healing; Z20.822 Contact with and (suspected) exposure to COVID-19
CPT/HCPCS: 36415; 73630; 80053; 84550; 85025; 85651; 86140; 87635

== ENCOUNTER → 2021-04-07 16:01 | Outpatient (CLI) | payer OTHER, SELFPAY ==
--- NOTE | 2021-04-07 | DI.MG.S_ITS ---
BILATERAL DIGITAL SCREENING MAMMOGRAM 3D/2D WITH CAD: 04/07/2021 CLINICAL: Routine screening. Comparison is made to exams dated: 03/11/2020 mammogram, 02/14/2020 mammogram, and 06/29/2018 mammogram - . There are scattered fibroglandular elements in both breasts. Current study was also evaluated with a Computer Aided Detection (CAD) system. No significant masses, calcifications, or other findings are seen in either breast. There has been no significant interval change. IMPRESSION: NEGATIVE There is no mammographic evidence of malignancy. A 1 year screening mammogram is recommended. This exam was interpreted at Station ID: [id number]. NOTE: For mammograms, a report in lay terms will be sent to the patient. Approximately 15% of breast malignancies will not be visualized mammographically. In the management of a palpable breast mass, a negative mammogram must not discourage biopsy of a clinically suspicious lesion. Electronically Signed By: Oniel guevara/moshe:04/08/2021 09:28:30 letter sent: Normal Exam ACR BI-RADS Category 1: Negative 3341F
== END ==
PROVIDERS: PCP Nurse Practitioner; Referring Provider Nurse Practitioner; Visit Provider Nurse Practitioner
DX: Z12.31 Encounter for screening mammogram for malignant neoplasm of breast (principal)
CPT/HCPCS: 77063; 77067

== ENCOUNTER → 2022-05-12 08:26 | Outpatient (ROUT) | payer OTHER, SELFPAY ==
[2022-05-13 10:09] LABS: Fecal Immunochemical Test Negative (Negative)
== END ==
PROVIDERS: PCP Nurse Practitioner; Visit Provider Nurse Practitioner
DX: Z12.11 Encounter for screening for malignant neoplasm of colon (principal)
CPT/HCPCS: 82274

== ENCOUNTER → 2022-05-13 15:49 | Outpatient (CLI) | payer OTHER, SELFPAY ==
--- NOTE | 2022-05-13 15:50 | DI.MG.S_ITS ---
BILATERAL DIGITAL SCREENING MAMMOGRAM 3D/2D WITH CAD: 05/13/2022 CLINICAL: Routine screening. Family history of breast cancer. Comparison is made to exams dated: 04/07/2021 mammogram, 02/14/2020 mammogram, and 06/29/2018 mammogram - [facility]. There are scattered areas of fibroglandular density in both breasts (category b / 25%-50% glandular tissue). Current study was also evaluated with a Computer Aided Detection (CAD) system. No significant masses, calcifications, or other findings are seen in either breast. There has been no significant interval change. IMPRESSION: NEGATIVE There is no mammographic evidence of malignancy. A 1 year screening mammogram is recommended. Based on the Tyrer Cuzick model (a risk assessment model) the patient's lifetime risk is 11.0% and her 10 year risk is 3.2%. According to the ACR, ACS, and NCCN guidelines, an annual breast MRI exam along with mammogram is recommended if the patient's lifetime risk is 20% or greater. This exam was interpreted at Station ID: [id number]. NOTE: For mammograms, a report in lay terms will be sent to the patient. Approximately 15% of breast malignancies will not be visualized mammographically. In the management of a palpable breast mass, a negative mammogram must not discourage biopsy of a clinically suspicious lesion. Electronically Signed By: Arron Maurer M.D., jr/moshe:05/14/2022 14:43:37 letter sent: Normal Exam ACR BI-RADS Category 1: Negative 3341F
== END ==
PROVIDERS: PCP Nurse Practitioner; Referring Provider Nurse Practitioner; Visit Provider Nurse Practitioner
DX: Z12.31 Encounter for screening mammogram for malignant neoplasm of breast (principal); Z80.3 Family history of malignant neoplasm of breast
CPT/HCPCS: 77063; 77067

== ENCOUNTER → 2022-10-21 09:07 | Outpatient (CLI) | payer OTHER, SELFPAY ==
[2022-10-21 09:36] LABS: Hemoglobin 12.8 g/dL (12.0-16.0); Mean Corpuscular HGB Conc 33.7 % (30-36); Mean Corpuscular Hemoglobin 30.1 PG (26-34); Mean Corpuscular Volume 89.4 fL (80-100); Platelet Count 267 X10^3/uL (150-400); Red Blood Cell Count 4.25 X10^6/uL (4.0-5.2); Red Cell Distribution Width 13.4 % (11.6-14.8)
[2022-10-21 10:03] LABS: Alanine Aminotransferase 25 IU/L (<35); Albumin Globulin Ratio 1.5 (1.0-2.8); Alkaline Phosphatase 53 U/L (38-126); Aspartate Aminotransferase 23 IU/L (14-36); BUN Creatinine Ratio 18.2 (6-22); Bilirubin Total 0.4 mg/dL (0.2-1.3); Blood Urea Nitrogen 14 mg/dL (7-17); Calcium 8.9 mg/dL (8.4-10.2); Carbon Dioxide 26 mmol/L (22-32); Chloride 105 mmol/L (98-107); Cholesterol 235 mg/dL (140-199); Estimated Glomerular Filt Rate > 60 mL/min (>60); Globulin 2.6 g/dL (1.7-4.1); Glucose 96 mg/dL (70-100); HDL Cholesterol 69 mg/dL (40-60); HEMOLYSIS < 15 (0-50); LDL Cholesterol Calculated 138 mg/dL (<100); Potassium 4.2 mmol/L (3.4-5.1); Sodium 137 mmol/L (137-145); Total Protein 6.6 g/dL (6.3-8.2); Triglycerides 138 mg/dL (35-150)
[2022-10-21 10:13] LABS: Free T3, Triiodothyronine Free 4.35 pg/mL (2.77-5.27); Free T4, Direct Thyroxine 1.07 ng/dL (0.78-2.19)
[2022-10-21 10:26] LABS: Thyroid Stimulating Hormone 1.95 uIU/mL (0.47-4.68)
[2022-10-21 11:53] LABS: Creatinine Urine Random 18.3 mg/dL
[2022-10-21 12:03] LABS: Microalbumin Urine Random < 0.6 mg/dL (0-1.6)
[2022-10-22 16:13] LABS: HIV 1 & 2 Ab/Ag 4th Gen Combo NEGATIVE (NEGATIVE); Hep C Virus Ab w/Reflex Quant NEGATIVE s/c (NEGATIVE)
== END ==
PROVIDERS: PCP Nurse Practitioner; Referring Provider Nurse Practitioner; Visit Provider Nurse Practitioner
DX: Z00.00 Encounter for general adult medical examination without abnormal findings (principal); Z11.59 Encounter for screening for other viral diseases; Z11.4 Encounter for screening for human immunodeficiency virus [HIV]
CPT/HCPCS: 36415; 80053; 80061; 82043; 82570; 84439; 84443; 84481; 85027; 86803; 87389

== ENCOUNTER → 2023-04-08 12:09 | Outpatient (CLI) | payer OTHER, SELFPAY ==
[2023-04-08 13:07] LABS: Influenza A - CEPHEID Flu A NEGATIVE (NEGATIVE); Influenza B - CEPHEID Flu B NEGATIVE (NEGATIVE); Respiratory Syncytial Virus Negative (Negative)
[2023-04-08 13:09] LABS: COVID-19 CEPHEID 4-PLEX PCR Negative (Negative)
== END ==
PROVIDERS: PCP Nurse Practitioner; Visit Provider Nurse Practitioner Family
DX: R05.1 Acute cough (principal)
CPT/HCPCS: 0241U

== ENCOUNTER → 2023-06-09 16:06 | Outpatient (CLI) | payer OTHER, SELFPAY ==
--- NOTE | 2023-06-09 16:07 | DI.MG.S_ITS ---
BILATERAL DIGITAL SCREENING MAMMOGRAM 3D/2D WITH CAD: 06/09/2023 CLINICAL: Routine screening. Family history of breast cancer. Comparison is made to exams dated: 05/13/2022 mammogram, 04/07/2021 mammogram, and 02/14/2020 mammogram - [facility]. There are scattered areas of fibroglandular density in both breasts (category b / 25%-50% glandular tissue). Current study was also evaluated with a Computer Aided Detection (CAD) system. No significant masses, calcifications, or other findings are seen in either breast. There has been no significant interval change. IMPRESSION: NEGATIVE There is no mammographic evidence of malignancy. A 1 year screening mammogram is recommended. Based on the Tyrer Cuzick model (a risk assessment model) the patient's lifetime risk is 10.8% and her 10 year risk is 3.3%. According to the ACR, ACS, and NCCN guidelines, an annual breast MRI exam along with mammogram is recommended if the patient's lifetime risk is 20% or greater. This exam was interpreted at Station ID: [id number]. NOTE: For mammograms, a report in lay terms will be sent to the patient. Approximately 15% of breast malignancies will not be visualized mammographically. In the management of a palpable breast mass, a negative mammogram must not discourage biopsy of a clinically suspicious lesion. Electronically Signed By: Raleigh abrams/moshe:06/10/2023 09:55:11 letter sent: Normal Exam ACR BI-RADS Category 1: Negative [id number]
== END ==
PROVIDERS: PCP Nurse Practitioner; Referring Provider Nurse Practitioner; Visit Provider Nurse Practitioner
DX: Z12.31 Encounter for screening mammogram for malignant neoplasm of breast (principal); Z80.3 Family history of malignant neoplasm of breast; R92.323 Mammographic fibroglandular density, bilateral breasts
CPT/HCPCS: 77063; 77067

== ENCOUNTER → 2023-11-10 08:28 | Outpatient (CLI) | payer OTHER, SELFPAY ==
[2023-11-10 09:09] LABS: Add Manual Diff / Slide Review NO; Basophils Absolute Auto 0 /uL (0-100); Basophils Percent Auto 0.5 % (0-2); Eosinophils Absolute Auto 100 /uL (0-450); Eosinophils Percent Auto 1.4 % (2-4); Hematocrit 39.4 % (36-46); Hemoglobin 13.1 g/dL (12.0-16.0); Lymphocytes Absolute Auto 1200 /uL (1100-4500); Lymphocytes Percent Auto 23.6 % (25-40); Mean Corpuscular HGB Conc 33.2 % (30-36); Mean Corpuscular Volume 90.4 fL (80-100); Monocytes Absolute Auto 400 /uL (0-900); Monocytes Percent Auto 8.6 % (3-14); Neutrophils Absolute Auto 3400 /uL (1500-7000); Neutrophils Percent Auto 65.9 % (50-75); Platelet Count 322 X10^3/uL (150-400); Red Blood Cell Count 4.36 X10^6/uL (4.0-5.2); Red Cell Distribution Width 13.1 % (11.6-14.8); White Blood Cell Count 5.2 X10^3/uL (4.5-11.0)
[2023-11-10 09:39] LABS: Cholesterol 215 mg/dL (140-199); HDL Cholesterol 69 mg/dL (40-60); LDL Cholesterol Calculated 126 mg/dL (<100); Triglycerides 101 mg/dL (35-150)
[2023-11-10 09:57] LABS: Free T3, Triiodothyronine Free 3.34 pg/mL (2.77-5.27); Free T4, Direct Thyroxine 0.94 ng/dL (0.78-2.19)
[2023-11-10 09:59] LABS: Vitamin D 25 Hydroxy (D3) 22.9 ng/mL (30.0-100.0)
[2023-11-10 10:11] LABS: Thyroid Stimulating Hormone 1.78 uIU/mL (0.47-4.68)
[2023-11-10 16:39] LABS: HIV 1 & 2 Ab/Ag 4th Gen Combo NEGATIVE (NEGATIVE); Hep C Virus Ab w/Reflex Quant NEGATIVE s/c (NEGATIVE)
== END ==
PROVIDERS: PCP Nurse Practitioner; Referring Provider Nurse Practitioner; Visit Provider Nurse Practitioner
DX: Z00.00 Encounter for general adult medical examination without abnormal findings (principal)
CPT/HCPCS: 36415; 80061; 82306; 83036; 84439; 84443; 84481; 85025; 86803; 87389

== ENCOUNTER 2024-05-18 08:58 | Day surgery (SDC) | payer OTHER, SELFPAY ==
[2024-05-18 09:22] VITALS: BP 141/86; PULSE 94; RESP 16; TEMP 36.8; O2SAT 95
[2024-05-18] MEDS: LACTATED RINGERS 1,000 ML 42 ML IV (09:31)
--- NOTE | 2024-05-18 09:47 | P.HP_ITS ---
History of Present Illness History of Present Illness Date Patient Seen: 05/18/24 Time Patient Seen: 09:47 [place] [facility] [place]: Wendy is a 58-year-old woman here for colonoscopy. She had 1 in 2018 and few adenomatous polyps were removed. 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 Dupuytren contracture Chronic cough (~2007) Asthma (~1981) Seasonal allergies (~1981) Migraines (~1999) History of cold sores (~1969) Chicken pox (~1971) Recurrent sinusitis (~1984) History of recurrent ear infection (~1983) Painful menstrual periods (~2014) Irregular menstrual cycle (~2014) Heavy menstrual period (~2013) Abnormal Pap smear of cervix (~1985) Surgical History Anesthesia History of tonsillectomy and adenoidectomy (~1994) Family History Father Heart disease Pacemaker Stroke Mother Heart disease Hypertension Hyperlipidemia Brother Hyperlipidemia Hypertension Sister Crohn's disease Grandfather Heart disease Grandmother Stroke Social History household members: spouse Smoking Status: Never smoker second hand exposure: Yes (I was for many years, but not anymore.) alcohol intake: current substance use type: does not use Meds Home Medications and Allergies Home Medications Medication Instructions Recorded Confirmed Type Ventolin Inhaler See Rx Instructions .Route .COMPLEX 07/05/18 05/18/24 History acetaminophen 325 mg tablet 500 mg PO ONCE PRN Pain (Scale 07/05/18 05/18/24 History (Tylenol) Score 1-3) fluticasone propionate 50 See Rx Instructions intranasal 07/05/18 05/18/24 History mcg/actuation nasal DAILY spray,suspension (Flonase Allergy Relief) ibuprofen 200 mg tablet (Advil) 400 mg PO ONCE PRN Pain (Scale 07/05/18 05/18/24 History Score 1-3) rizatriptan 10 mg disintegrating 10 mg PO ONCE PRN Migraine Headache 07/05/18 05/18/24 History tablet (Maxalt-MOTORCYCLE FABRICATOR) Jennifer 1 tab PO DAILY PRN Allergic 07/14/18 05/18/24 History Symptoms Promethazine 1 tab PO ONCE PRN Migraine Headache 07/14/18 05/18/24 History Sudafed PE OTC See Rx Instructions .Route 07/14/18 05/18/24 History .COMPLEX PRN Congestion Zovirax See Rx Instructions .Route 07/14/18 02/16/24 History .COMPLEX Cold sores Multidophilus PO 02/21/19 02/16/24 History benzonatate 100 mg capsule 200 mg (2 x 100 mg) PO BID PRN 04/08/23 05/18/24 Rx cough #20 caps valsartan 80 mg tablet 80 mg PO DAILY #90 tabs 08/17/23 05/18/24 Rx fluticasone 250 mcg-salmeterol 50 See Rx Instructions .Route 12/13/23 05/18/24 Rx mcg/dose blistr powdr for .COMPLEX #60 ea inhalation vitamin D3-vitamin K2 PO 02/16/24 02/16/24 History estradiol 10 mcg vaginal tablet 10 mcg vaginal 2XW #24 tabs 03/28/24 Rx Zyrtec See Rx Instructions .Route .COMPLEX 05/18/24 05/18/24 History Allergies Allergy/AdvReac Type Severity Reaction Status Date / Time Sulfa (Sulfonamide Allergy Severe anaphylaxis Verified 05/18/24 09:13 Antibiotics) codeine Allergy Intermediate Nausea Verified 05/18/24 09:13 benazepril AdvReac Intermediate Nausea; Verified 05/18/24 09:13 Dizziness; Fatigue Exam Vital Signs (past 8 hours): - 05/18/24 09:22 Temperature 98.2 F Pulse Rate 94 H Respiratory Rate 16 Blood Pressure 141/86 H Pulse Oximetry 95 Oxygen Delivery Method Room Air Oxygen Flow Rate 0 Oxygen Delivery Method Room Air Oxygen Flow Rate 0 Const General: No acute distress Assessment & Plan Assessment and plan (1) History of colon polyps: Status: Acute Plan Colonoscopy Time-Based Coding :: [TOTAL MINUTES] spent with patient and on the chart (including review of chart, obtaining history, exam, reviewing outside data, placing orders, documenting exam and treatment plan, and counseling patient) on [DATE]. [employer] Document charge(s): No
[2024-05-18 10:12] VITALS: BP 99/58; PULSE 78; RESP 14; TEMP 36.5; O2SAT 95
[2024-05-18 10:17] VITALS: BP 106/66; PULSE 79; RESP 20; O2SAT 96
--- NOTE | 2024-05-18 10:17 | PM.OP.COLON ---
Operative Date/Time/Diagnoses Date of procedure: 05/18/24 Time of procedure: 10:17 Pre-op diagnosis: History of polyps Post-op diagnosis: same Procedure & Clinicians Study performed: Colonoscopy Same procedure as scheduled: Yes Surgeon: Gaurav Ochoa Procedure Notes Procedure in detail: Surgeon: Gaurav Ochoa MD Anesthesia: Eli Salas CRNA Procedure: The patient was brought to the endoscopy suite, placed in left lateral decubitus position. The patient was connected to monitoring devices. A time-out was performed. Sedation was administered. Once the patient was adequately sedated, a digital rectal exam was performed and was normal. The scope was then inserted and advanced to the cecum where the appendiceal orifice was identified and photographed. The scope was then slowly withdrawn over greater than 6 minutes. The mucosa was thoroughly inspected. No abnormalities were found. The scope was retroflexed in the rectum. The scope was straightened and removed. The patient was awakened and brought to recovery. Scope withdrawal time: 9 minutes Sedation time: 12 minutes EBL: 0 Findings: Normal colon Post-procedure Recommendations: Colonoscopy in 10 years Disposition: PACU
[2024-05-18 10:22] VITALS: BP 122/77; PULSE 82; RESP 12; O2SAT 95
[2024-05-18 10:27] VITALS: BP 120/76; PULSE 81; RESP 14; O2SAT 96
== END 2024-05-18 10:38 | disposition home or self-care (01) ==
PROVIDERS: PCP Family Medicine; Referring Provider Surgery; Visit Provider Surgery
PROC: 0DJD8ZZ Inspection of Lower Intestinal Tract, Via Natural or Artificial Opening Endoscopic (ICD-10-PCS; CPT 45378; principal; 2024-05-18 10:15)
DX: Z12.11 Encounter for screening for malignant neoplasm of colon (principal); Z86.0100 Personal history of colon polyps, unspecified
CPT/HCPCS: 45378; J2704

== ENCOUNTER → 2024-06-14 16:09 | Outpatient (CLI) | payer OTHER, SELFPAY ==
--- NOTE | 2024-06-14 16:10 | DI.MG.S_ITS ---
MM screening mammo BI: 06/14/2024. BI-RADS: 1 CLINICAL: 58-year old female for bilateral screening mammogram. Tyrer-Cuzick lifetime risk of 9.0%. No personal or first-degree family history of breast cancer. Current reported family history of breast cancer: maternal aunt. PRIOR EXAMS 06/09/2023, 05/13/2022, 04/07/2021, 03/11/2020, 02/14/2020, 06/29/2018. MAMMOGRAPHY TECHNIQUE: 2D and 3D (tomosynthesis) digital mammographic views obtained, with additional images as needed for full coverage. Current study was also evaluated with a Computer Aided Detection (CAD) system. DENSITY B. There are scattered areas of fibroglandular density. MAMMOGRAPHY FINDINGS Bilateral: No suspicious mass, asymmetry, microcalcification, or other abnormality seen. No significant change from comparison. IMPRESSION: * No evidence of malignancy. RECOMMENDATIONS Bilateral * Annual screening mammography. OVERALL ASSESSMENT CATEGORY BI-RADS-1: Negative. The [employer] recommends annual screening mammography beginning at age 40 for women with average risk of breast cancer. ELECTRONICALLY SIGNED: Shanika Brown M.D. on 06/15/2024 at 08:26:54 AM PT Interpreting Station ID: [id number]
== END ==
PROVIDERS: PCP Family Medicine; Referring Provider Family Medicine; Visit Provider Family Medicine
DX: Z12.31 Encounter for screening mammogram for malignant neoplasm of breast (principal); Z80.3 Family history of malignant neoplasm of breast
CPT/HCPCS: 77063; 77067